=== PATIENT | female | born 1950 | race Caucasian/White ===

== ENCOUNTER 2017-08-31 11:04 | Emergency (ER) | payer OTHER ==
[~2017-08-31] VITALS: Ht 180.3 cm; Wt 213.2 kg
[~2017-08-31 11:04] MED LIST: ANTIVERT25 MG PO; ASPIR 8181 M1 PO; CIPRO500 MG PO; KLOR-CON 1010 MEQ PO; LASIX 20 MG TAB20 MG PO; LEVOCETIRIZINE D5 MG PO; LIPITOR 20 MG T20 M1 PO; LISINOPRIL10 MG PO; ULTRA-LIGHT RO1 EACH MC
[2017-08-31] MEDS ORDERED: COZAAR 25 MG TA25 M1 PO (12:18)
[2017-08-31 12:26] LABS: URINE BILIRUBIN NEGATIVE (Negative); URINE BLOOD TRACE (Negative); URINE CLARITY CLEAR; URINE COLOR YELLOW; URINE GLUCOSE-RANDOM NEGATIVE (Negative); URINE KETONES NEGATIVE (Negative); URINE LEUKOCYTES-REFLEX 1+ (Negative); URINE NITRITE-REFLEX POSITIVE (Negative); URINE PROTEIN NEGATIVE (Negative); URINE SPECIFIC GRAVITY 1.015 (1.005-1.030); URINE UROBILINOGEN 0.2 E.U./dl (0.2-1.0)
[2017-08-31 12:31] LABS: BACTERIA-REFLEX >30 Many /HPF (None Seen); CASTS None Seen /LPF (None Seen); CRYSTALS None Seen /LPF (None Seen); MUCUS None Seen strn/LPF (None Seen); SQUAMOUS 4-10 Moderate /LPF (0-3); URINE RBC 3-10 Few /HPF (0-2)
[2017-08-31 12:35] LABS: APTT 26.6 Seconds (25.0-31.3)
[2017-08-31 13:19] LABS: ABSOLUTE EOSINOPHILS 0.1 thou/uL (0.0-0.7); ABSOLUTE LYMPHOCYTES 0.8 thou/uL (0.8-5.3); ABSOLUTE MONOCYTES 0.4 thou/uL (0.0-1.2); ABSOLUTE NEUTROPHILS 4.4 thou/uL (1.6-8.1); BASOPHILS 0.5 %; EOSINOPHILS 2.5 %; HEMATOCRIT 41.7 % (37.0-47.0); HEMOGLOBIN 13.9 gm/dL (12.0-15.0); MCH 30.6 pg (26.0-34.0); MCHC 33.4 g/dL (28.0-37.0); MCV 91.6 fL (80.0-100.0); MONOCYTES 6.2 %; MPV 9.4 fl. (7.2-11.1); NUCLEATED RBCS 0 /100WBC; PLATELET COUNT* 208 thou/uL (150-400); POLYS 76.8 %; RBC 4.55 mil/uL (4.20-5.00); RDW-CV 13.2 % (10.5-14.5); WBC 5.8 thou/uL (4.0-11.0)
[2017-08-31 13:25] LABS: ANION GAP 8 mmol/L (7-16); BUN 18 mg/dL (7-18); CHLORIDE 103 mmol/L (98-107); CO2 28 mmol/L (21-32); CREATININE 1.1 mg/dL (0.6-1.3); GLUCOSE 180 mg/dL (70-99); SODIUM 139 mmol/L (136-145)
[2017-08-31 13:32] LABS: ALBUMIN 3.9 g/dL (3.4-5.0); ALKALINE PHOSPHATASE 77 U/L (46-116); MAGNESIUM 1.9 mg/dL (1.8-2.4); SGOT 23 U/L (15-37); SGPT 32 U/L (30-65); TOTAL BILIRUBIN 0.6 mg/dL (<0.1-1.0); TOTAL PROTEIN 8.1 g/dL (6.4-8.2); TROPONIN-I LEVEL <0.06 ng/mL (<0.06)
[2017-08-31] MEDS ORDERED: CIPRO500 M1 PO (14:27)
[2017-08-31 14:44] VITALS: BP 157/79
--- NOTE | 2017-08-31 15:05 | EKG ---
[place] [address] ELECTROCARDIOGRAM REPORT Name: LINCOLN MADRID Room: [facility]#: [id number] Admission: 08/31/17 Attend Phys: Discharge: 08/31/17 Date of : 52 Report #: [id number] THIS REPORT FOR: //name// [facility] ED Test Date: 2017-08-31 Test Time: 13:28:09 Pat Name: LINCOLN MADRID Department: Room: Gender: F Licensed Physical Therapist Assistant: STUDENT : 1950 Requested By: Magalis Espino Order Number: [id number] MD: Rufino Dawn Measurements Intervals [place] Rate: 65 P: 34 [place]: 208 QRS: -10 QRSD: 102 T: 39 QT: 459 QTc: 478 Interpretive Statements Sinus rhythm consider Inferior infarct, old Compared to ECG 07/25/2016 12:42:34 Myocardial infarct finding now present First degree AV block no longer present Electronically Signed On 08-31-2017 15:05:33 BLISTER PACK OPERATOR by Rufino Dawn [email or web address] <ELECTRONICALLY SIGNED> By: Rufino Dawn MD, [facility] 08/31/17 1503 1328 1328 Rufino Dawn MD, [facility] /EPI
== END 2017-08-31 14:46 | disposition home or self-care (01) ==
LOC: M.ERS 11:04
PROVIDERS: Nurse Practitioner Family
DX: N39.0 Urinary tract infection, site not specified (principal); I10 Essential (primary) hypertension; Z88.8 Allergy status to other drugs, medicaments and biological substances; Z88.0 Allergy status to penicillin

== ENCOUNTER 2017-09-08 20:35 | Inpatient (IN) | payer MEDICARE ==
[~2017-09-08] VITALS: Ht 180.3 cm; Wt 194.1 kg
[~2017-09-08 20:35] MED LIST changes: +CIPRO500 M1 PO; +COZAAR 25 MG TA25 M1 PO
[2017-09-08 20:38] VITALS: BP 151/81
[2017-09-08 21:03] LABS: ABSOLUTE BASOPHILS 0.1 thou/uL (0.0-0.2); ABSOLUTE EOSINOPHILS 0.2 thou/uL (0.0-0.7); ABSOLUTE LYMPHOCYTES 1.3 thou/uL (0.8-5.3); ABSOLUTE MONOCYTES 0.6 thou/uL (0.0-1.2); ABSOLUTE NEUTROPHILS 4.5 thou/uL (1.6-8.1); BASOPHILS 0.8 %; EOSINOPHILS 3.2 %; HEMATOCRIT 39.8 % (37.0-47.0); HEMOGLOBIN 13.4 gm/dL (12.0-15.0); LYMPHOCYTES 19.8 %; MCH 30.8 pg (26.0-34.0); MCHC 33.8 g/dL (28.0-37.0); MCV 91.2 fL (80.0-100.0); MONOCYTES 8.5 %; MPV 8.4 fl. (7.2-11.1); NUCLEATED RBCS 0 /100WBC; PLATELET COUNT* 187 thou/uL (150-400); POLYS 67.7 %; RBC 4.36 mil/uL (4.20-5.00); RDW-CV 13.2 % (10.5-14.5); WBC 6.6 thou/uL (4.0-11.0)
[2017-09-08 21:10] LABS: CALCIUM 8.7 mg/dL (8.5-10.1); CREATININE 1.2 mg/dL (0.6-1.3)
[2017-09-08 21:15] LABS: ALBUMIN 3.6 g/dL (3.4-5.0); TOTAL BILIRUBIN 0.5 mg/dL (<0.1-1.0); TOTAL PROTEIN 7.4 g/dL (6.4-8.2)
[2017-09-08 22:46] LABS: URINE BILIRUBIN NEGATIVE (Negative); URINE BLOOD NEGATIVE (Negative); URINE CLARITY CLEAR; URINE COLOR YELLOW; URINE GLUCOSE-RANDOM NEGATIVE (Negative); URINE KETONES NEGATIVE (Negative); URINE LEUKOCYTES-REFLEX NEGATIVE (Negative); URINE NITRITE-REFLEX NEGATIVE (Negative); URINE PROTEIN NEGATIVE (Negative); URINE SPECIFIC GRAVITY >= 1.030 (1.005-1.030); URINE UROBILINOGEN 0.2 E.U./dl (0.2-1.0)
[2017-09-08 23:31] VITALS: BP 139/79
[2017-09-09 00:15] VITALS: BP 125/69
--- NOTE | 2017-09-09 04:39 | NUR ---
ASSUMED PT CARE AT 0030, PT IS A&OX4, ADMITTED FOR N&V, NO VOMITIING SINCE ADMITTED TO THE [facility]. ADMISSION ASSESSMENT COMPLETED CHARTED. PT IS MED SURG STATUS. ON 2L PRN AND ON RA AT THIS TIME. SATTING MID TO HIGH 90'S. PT HAS IVF INFUSING PER MAR. PT IS ABOVE 400# AWAITING A BARIATRIC BED AT THIS TIME. PT VOIDS PER THE BED SIBLEY SHE IS TOO DIZZY TO STAND UP. BED IN LOW POSITION, CALL LIGHT IN RAECH, BED ALARM ON, YELLOW ARM BAND AND SOCKS IN PLACE, HOURLY ROUNDING COMPLETED FOR PT SAFETY.
[2017-09-09 05:24] LABS: HEMATOCRIT 36.3 % (37.0-47.0); HEMOGLOBIN 12.1 gm/dL (12.0-15.0); MCH 30.5 pg (26.0-34.0); MCHC 33.4 g/dL (28.0-37.0); MCV 91.2 fL (80.0-100.0); MPV 8.5 fl. (7.2-11.1); RBC 3.98 mil/uL (4.20-5.00); RDW-CV 13.3 % (10.5-14.5); WBC 6.6 thou/uL (4.0-11.0)
[2017-09-09 06:10] LABS: CALCIUM 8.3 mg/dL (8.5-10.1); POTASSIUM 4.6 mmol/L (3.5-5.1); TOTAL BILIRUBIN 0.5 mg/dL (<0.1-1.0); TOTAL PROTEIN 6.4 g/dL (6.4-8.2)
[2017-09-09 08:30] VITALS: BP 133/60
--- NOTE | 2017-09-09 11:44 | NUR ---
Pt was out of the room when CM went to assess, will f/u later
[2017-09-09 13:35] VITALS: BP 99/44
[2017-09-09 16:00] VITALS: BP 111/48
--- NOTE | 2017-09-09 16:34 | EKG ---
[place] [address] ELECTROCARDIOGRAM REPORT Name: LINCOLN MADRID Room: [address] ADM IN .R.#: [id number] Admission: 09/08/17 Attend Phys: Britney Wild MD Discharge: Date of : 52 Report #: [id number] THIS REPORT FOR: //name// [facility] ED Test Date: 2017-09-08 Test Time: 20:41:39 Pat Name: LINCOLN MADRID Department: Room: [facility] Gender: F Plant Nursery Worker: NILAY : 1950 Requested By: Deneen Rodarte Order Number: [id number] MD: Kevin Arroyo Measurements Intervals [place] Rate: 75 P: 34 MA: 213 QRS: 4 QRSD: 100 T: 34 QT: 445 QTc: 498 Interpretive Statements Sinus rhythm Borderline prolonged MA interval Low voltage, extremity and precordial leads Borderline prolonged QT interval Baseline wander in lead(s) II,aVF Compared to ECG 08/31/2017 13:28:09 Low QRS voltage now present Myocardial infarct finding no longer present Electronically Signed On 09-09-2017 16:34:37 DRIVER ENGINEER by Kevin Arroyo [email or web address] <ELECTRONICALLY SIGNED> By: Leelee Arroyo MD, [facility] 09/09/17 1634 40 40 Leelee Arroyo MD, [facility] /EPI
--- NOTE | 2017-09-09 19:56 | NUR ---
ASSUMED PT CARE AT 0730, FULL ASSESMENT DONE CHARTED. PT A/O X4, STATES HER DIZZYNESS, N/V IS BETTER. PT HAD MRI TODAY, RESULTS COMUNICATED WITH PT. PT UP TO BSC WITH ASSIST OF 2. PT TOLERATED REGULAR FOOD WELL THIS AFTERNOOON. FALL RPECATUOINS IN PLACE, CALL LIGHT IN REACH. REPORT GIVEN TO BRANDEE DAVALOS.
--- NOTE | 2017-09-10 02:56 | NUR ---
ASSUMED CARE OF PT AT 1900. PT IS ALERT AND ORIENTED. VSS. PERRLA. NO COMPLAINTS OF PAIN. UP WITH 1 ASSIST. PT IS IN SINUS RYTHM ON THE TELEMETRY. PT IS RESTING COMFORTABLY IN BED. RESPIRATIONS ARE EVEN AND NONLABORED. WILL CONTINUE TO MONITOR PT.
[2017-09-10 05:37] LABS: HEMATOCRIT 36.1 % (37.0-47.0); HEMOGLOBIN 12.1 gm/dL (12.0-15.0); MCH 30.6 pg (26.0-34.0); MCHC 33.6 g/dL (28.0-37.0); MCV 91.1 fL (80.0-100.0); MPV 8.6 fl. (7.2-11.1); RBC 3.96 mil/uL (4.20-5.00); RDW-CV 13.4 % (10.5-14.5); WBC 4.5 thou/uL (4.0-11.0)
[2017-09-10 05:56] LABS: ALBUMIN 3.2 g/dL (3.4-5.0); CALCIUM 8.4 mg/dL (8.5-10.1); CREATININE 1.1 mg/dL (0.6-1.3); MAGNESIUM 1.8 mg/dL (1.8-2.4); POTASSIUM 3.7 mmol/L (3.5-5.1); TOTAL BILIRUBIN 1.1 mg/dL (<0.1-1.0); TOTAL PROTEIN 6.5 g/dL (6.4-8.2)
[2017-09-10 08:45] VITALS: BP 148/61
--- NOTE | 2017-09-10 11:49 | NUR ---
ASSUMED PT CARE AT 0730, FULL ASSESMENT DONE CHARTED. PT A/O X4, DENIES PAIN, STATES DIZZYNESS IS BETTER, PT WANTS TO KNOW IF SHE IS GOING HOME TODAY PT USES CALL LIGHT APPRORPAITLY. FALL PRECATUIOINS IN PLACE. WILL CONTINUE WITH PLAN OF CARE.
[2017-09-10 12:00] VITALS: BP 114/81
[2017-09-10] MEDS ORDERED: FLONASE 0.05%50 MCG NASAL (13:05)
[2017-09-10] MEDS ORDERED: FOLIC ACID1 MG PO (13:05)
[2017-09-10 13:30] VITALS: BP 114/81
== END 2017-09-10 14:40 | disposition home or self-care (01) | DRG 149 ==
LOC: M.ERS 20:35 → M.TBA-ER 22:58 → M.2W 22:58
PROVIDERS: Emergency Medicine; ADMIT Internal Medicine
DX: H81.10 Benign paroxysmal vertigo, unspecified ear (principal); Z68.43 Body mass index [BMI] 50.0-59.9, adult; R42 Dizziness and giddiness; J32.9 Chronic sinusitis, unspecified; I10 Essential (primary) hypertension; E78.00 Pure hypercholesterolemia, unspecified; J45.909 Unspecified asthma, uncomplicated; E66.9 Obesity, unspecified; E11.9 Type 2 diabetes mellitus without complications; Z79.82 Long term (current) use of aspirin; Z79.899 Other long term (current) drug therapy; Z88.8 Allergy status to other drugs, medicaments and biological substances; Z88.0 Allergy status to penicillin; Z98.49 Cataract extraction status, unspecified eye; Z87.440 Personal history of urinary (tract) infections

== ENCOUNTER 2018-11-23 09:04 | Emergency (ER) | payer OTHER, MEDICARE ==
[~2018-11-23] VITALS: Ht 180.3 cm; Wt 186.0 kg
[~2018-11-23 09:04] MED LIST changes: +FLONASE 0.05%50 MCG NASAL; +FOLIC ACID1 MG PO
[2018-11-23] MEDS ORDERED: COZAAR 25 MG TA25 M2 PO (09:12)
[2018-11-23] MEDS ORDERED: METFORMIN HCL500 MG PO (09:13)
[2018-11-23] MEDS ORDERED: SYNTHROID25 MC1 PO (09:13)
[2018-11-23] MEDS ORDERED: ZANTAC 150MG T150 MG PO (09:13)
[2018-11-23] MEDS ORDERED: CETIRIZINE HCL5 MG PO (09:14)
[2018-11-23] MEDS ORDERED: KLOR-CON 1010 MEQ PO (09:14)
[2018-11-23] MEDS ORDERED: ATORVASTATIN CA40 MG PO (09:14)
[2018-11-23] MEDS ORDERED: SYMBICORT160 MCG/4. INH (09:15)
[2018-11-23] MEDS ORDERED: ALEVE220 MG PO (09:15)
[2018-11-23] MEDS ORDERED: VENTOLIN HFA 1818 GM INH (09:15)
[2018-11-23 09:36] LABS: ABSOLUTE EOSINOPHILS 0.3 thou/uL (0.0-0.7); ABSOLUTE MONOCYTES 0.3 thou/uL (0.0-1.2); ABSOLUTE NEUTROPHILS 2.7 thou/uL (1.6-8.1); BASOPHILS 0.7 %; EOSINOPHILS 6.8 %; HEMATOCRIT 39.4 % (37.0-47.0); HEMOGLOBIN 13.3 gm/dL (12.0-15.0); LYMPHOCYTES 22.3 %; MCH 31.4 pg (26.0-34.0); MCHC 33.7 g/dL (28.0-37.0); MONOCYTES 7.2 %; MPV 8.8 fl. (7.2-11.1); NUCLEATED RBCS 0 /100WBC; PLATELET COUNT* 190 thou/uL (150-400); RBC 4.23 mil/uL (4.20-5.00); RDW-CV 13.2 % (10.5-14.5); WBC 4.3 thou/uL (4.0-11.0)
[2018-11-23 09:53] LABS: ALBUMIN 3.7 g/dL (3.4-5.0); CALCIUM 8.7 mg/dL (8.5-10.1); CREATININE 1.2 mg/dL (0.6-1.3); MAGNESIUM 1.7 mg/dL (1.8-2.4); POTASSIUM 4.3 mmol/L (3.5-5.1); TOTAL BILIRUBIN 0.6 mg/dL (<0.1-1.0); TOTAL PROTEIN 7.3 g/dL (6.4-8.2)
[2018-11-23] MEDS ORDERED: ACETAMINOPHEN-1 EAC1 PO (10:20)
[2018-11-23] MEDS ORDERED: MAGNESIUM OXID200 MG PO (10:20)
[2018-11-23 10:28] VITALS: BP 142/82
== END 2018-11-23 10:28 | disposition home or self-care (01) ==
LOC: M.ERS 09:04
PROVIDERS: Emergency Medicine
DX: M54.32 Sciatica, left side (principal); E83.42 Hypomagnesemia; R60.0 Localized edema; I10 Essential (primary) hypertension; E78.00 Pure hypercholesterolemia, unspecified; J45.909 Unspecified asthma, uncomplicated; E11.9 Type 2 diabetes mellitus without complications; Z88.0 Allergy status to penicillin; Z88.8 Allergy status to other drugs, medicaments and biological substances

== ENCOUNTER 2020-08-16 03:21 | Emergency (ER) | payer BC, MEDICARE ==
[~2020-08-16] VITALS: Ht 180.3 cm; Wt 188.2 kg
[~2020-08-16 03:21] MED LIST changes: +ACETAMINOPHEN-1 EAC1 PO; +ALEVE220 MG PO; +ATORVASTATIN CA40 MG PO; +CETIRIZINE HCL5 MG PO; +COZAAR 25 MG TA25 M2 PO; +MAGNESIUM OXID200 MG PO; +METFORMIN HCL500 MG PO; +SYMBICORT160 MCG/4. INH; +SYNTHROID25 MC1 PO; +VENTOLIN HFA 1818 GM INH; +ZANTAC 150MG T150 MG PO
[2020-08-16] MEDS ORDERED: MECLIZINE HCL25 MG PO (03:28)
[2020-08-16 03:47] LABS: NUCLEATED RBCS 0 /100WBC
[2020-08-16 03:49] LABS: HEMATOCRIT 38.7 % (37.0-47.0); MPV 7.2 fl. (7.2-11.1)
[2020-08-16 03:54] LABS: MCH 30.8 pg (26.0-34.0); MCHC 33.6 g/dL (28.0-37.0); MCV 91.7 fL (80.0-100.0); PLATELET COUNT* 260 thou/uL (150-400); RBC 4.22 mil/uL (4.20-5.00); RDW-CV 12.8 % (10.5-14.5); WBC 6.2 thou/uL (4.0-11.0)
[2020-08-16 04:05] LABS: CALCIUM 8.2 mg/dL (8.5-10.1); CREATININE 1.1 mg/dL (0.6-1.3); POTASSIUM 3.7 mmol/L (3.5-5.1)
[2020-08-16 04:10] LABS: TOTAL BILIRUBIN 0.5 mg/dL (<0.1-1.0); TOTAL PROTEIN 7.4 g/dL (6.4-8.2)
[2020-08-16 05:19] LABS: URINE BILIRUBIN NEGATIVE (Negative); URINE BLOOD NEGATIVE (Negative); URINE CLARITY CLEAR; URINE COLOR YELLOW; URINE GLUCOSE-RANDOM 2+ (Negative); URINE KETONES NEGATIVE (Negative); URINE LEUKOCYTES-REFLEX NEGATIVE (Negative); URINE NITRITE-REFLEX NEGATIVE (Negative); URINE PROTEIN NEGATIVE (Negative); URINE SPECIFIC GRAVITY 1.025 (1.005-1.030); URINE UROBILINOGEN 0.2 E.U./dl (0.2-1.0)
[2020-08-16 05:37] LABS: ABSOLUTE EOSINOPHILS 0.1 thou/uL (0.0-0.7); ABSOLUTE LYMPHOCYTES 1.6 thou/uL (0.8-5.3); ABSOLUTE MONOCYTES 0.3 thou/uL (0.0-1.2); ABSOLUTE NEUTROPHILS 4.2 thou/uL (1.6-8.1); ATYPICAL LYMPHS 2 %
[2020-08-16 05:38] LABS: PLATELET ESTIMATE ADEQUATE
[2020-08-16 05:39] LABS: POLYCHROMASIA 1+
[2020-08-16] MEDS ORDERED: DIFLUCAN150 MG PO (06:24)
[2020-08-16] MEDS ORDERED: NYAMYC15 GM TOP (06:24)
[2020-08-16] MEDS ORDERED: CIPROFLOXACIN500 M1 PO (06:24)
[2020-08-16 06:35] VITALS: BP 145/96
--- NOTE | 2020-08-17 12:53 | EKG ---
[place] [address] ELECTROCARDIOGRAM REPORT Name: LINCOLN MADRID Room: [facility]#: [id number] Admission: 08/16/20 Attend Phys: Discharge: 08/16/20 Date of : 52 Date of Service: 08/16/20 0353 Report #: [id number] THIS REPORT FOR: //name// [facility] ED Test Date: 2020-08-16 Test Time: 03:53:45 Pat Name: LINCOLN MADRID Department: Room: Gender: F Computer Help Desk Representative: ROSEANN Vidales : 1950 Requested By: Deneen Rodarte Order Number: [id number] MD: Rufino Dawn Measurements Intervals [place] Rate: 89 P: 71 [place]: 205 QRS: -8 QRSD: 107 T: 25 QT: 395 QTc: 481 Interpretive Statements Sinus rhythm artifact noted Probable anterior infarct, age indeterminate Compared to ECG 09/08/2017 20:41:39 no change Electronically Signed On 08-17-2020 12:53:16 MOTORCOACH OPERATOR by Rufino Dawn [email or web address] <ELECTRONICALLY SIGNED> By: Rufino Dawn MD, FACC 08/17/20 [phone] Rufino Dawn MD, [facility] /EPI
--- NOTE | 2020-08-17 12:53 | EKG ---
[place] [address] ELECTROCARDIOGRAM REPORT Name: LINCOLN MADRID Room: [facility]#: [id number] Admission: 08/16/20 Attend Phys: Discharge: 08/16/20 Date of : 52 Date of Service: 08/16/20 0356 Report #: [id number] THIS REPORT FOR: //name// [facility] ED Test Date: 2020-08-16 Test Time: 03:56:48 Pat Name: LINCOLN MADRID Department: Room: Gender: F School Resource Officer: ROSEANN Vidales : 1950 Requested By: Deneen Rodarte Order Number: [id number] MD: Rufino Dawn Measurements Intervals [place] Rate: 86 P: 48 [place]: 206 QRS: 13 QRSD: 106 T: 25 QT: 406 QTc: 486 Interpretive Statements Sinus rhythm Probable anterior infarct, age indeterminate Compared to ECG 08/16/2020 03:53:45 No significant changes Electronically Signed On 08-17-2020 12:53:26 FOREIGN CAR MECHANIC by Rufino Dawn [email or web address] <ELECTRONICALLY SIGNED> By: Rufino Dawn MD, [facility] 08/17/20 1253 0356 0356 Rufino Dawn MD, [facility] /EPI
== END 2020-08-16 07:15 | disposition home or self-care (01) ==
LOC: M.ERS 03:21
PROVIDERS: Emergency Medicine
DX: R21 Rash and other nonspecific skin eruption (principal); R60.0 Localized edema; I10 Essential (primary) hypertension; J45.909 Unspecified asthma, uncomplicated; E11.9 Type 2 diabetes mellitus without complications; E78.5 Hyperlipidemia, unspecified; Z79.899 Other long term (current) drug therapy; Z88.0 Allergy status to penicillin; Z88.8 Allergy status to other drugs, medicaments and biological substances; Z20.828 Contact with and (suspected) exposure to other viral communicable diseases